=== PATIENT | female | born 2000 | race Caucasian/White ===

== ENCOUNTER 2023-10-26 02:26 | Emergency (ER) | payer OTHER, SELFPAY ==
[2023-10-26] MEDS ORDERED: Lidocaine Viscous Sol 2% 15 ml UD Cup FS SCH (03:00)
== END 2023-10-26 03:39 | disposition home or self-care (01) ==
LOC: CSHERS 02:26
DX: S31.41XA Laceration without foreign body of vagina and vulva, initial encounter (principal); F17.290 Nicotine dependence, other tobacco product, uncomplicated; X58.XXXA Exposure to other specified factors, initial encounter
CPT/HCPCS: 99282